=== PATIENT | female | born 1985 | race Two or more races ===

== ENCOUNTER 2016-07-08 09:26 | Emergency (ER) | payer MEDICAID, OTHER ==
[~2016-07-08 09:26] MED LIST: PRENCAP17 PO
--- NOTE | 2016-07-08 09:39 | PD ---
HPI Chief Complaint low back pain Date Seen: Jul 08, 2016 Time Seen: 09:45 Travel History International Travel<30 Days: No Contact w/Intl Traveler<30Days: No History of Present Illness HPI 31 year old at 37/6 weeks gestation with DILLON 07/23/16 by LMP 10/17/15, confirmed by ultrasound 06/16/16. Has history of , GBS negative. Reports to OB ED for lower back pain. The pain started one week ago and has been intermittent. It increased in intensity and has remained constant since early this morning. She's been having sporadic contractions for the past week that have not increased in intensity or frequency. She has no leakage of fluid or vaginal bleeding. She has good movements. No nausea, vomiting, abdominal pain, chest pain, shortness of breath. No dysuria or increased frequency of urination. She otherwise feels fine. She has not taken anything to relieve the pain and has not noticed any particular alleviating or aggravating factors. History Past Medical History Narrative Medical Pituitary adenoma treated with medication, resolved by patient report Obstetric History Obstetric History History of , full term Takes vitamins scheduled for 07/18/16 DILLON 07/23/16 by LMP 10/17/15, confirmed by ultrasound 06/16/16 GBS negative BP's normal Blood type: B Rh positive antibody screen negative Pap normal Rubella immune VDRL negative urine screen normal HBsAg negative HIV negative GC/chlamydia negative TSH 1.75 Varicella positive Past Surgical History Narrative Surgical X1 Breast augmentation Liposuction Family History Narrative Family History Maternal hypertension Social History Narrative Social History No smoking, drinking, or drug use Allergies-Medications (Allergen,Severity, Reaction): Coded Allergies: No Known Allergies (Unverified , 07/06/16) Home Meds Active Scripts Without A W/ Fe Carbo (Prenate Mini 29-0.6-0.4-350 mg)1 Cap [id number] Cap PO DAILY #90 BOTTLE Ref 1 Prov:Vinayak Carter MD 06/01/16 Review of Systems Except as stated in HPI: all other systems reviewed are Neg Physical Exam Narrative GENERAL: No acute distress SKIN: Warm and dry. HEAD: Normocephalic and atraumatic. EYES: No scleral icterus. No injection or drainage. ENT: No nasal drainage noted. Mucous membranes pink. Airway patent. NECK: Supple, trachea midline. No JVD. CARDIOVASCULAR: Regular rate and rhythm without murmurs, gallops, or rubs. RESPIRATORY: Breath sounds equal bilaterally. No accessory muscle use. ABDOMEN/GI: Abdomen soft, non-tender, bowel sounds present, no rebound, no guarding Gravid to [-] weeks size Fundal Height: [-] GENITOURINARY: External Genitalia: intact and normal in appearance Dilatation: 1 Effacement: 0 Station: -3 Presentation: [-] Membranes: [intact or ruptured] Uterine Contractions: sporadic contractions FHT's: Category: 1 Baseline: 140's Reactive: yes Variability: moderate Decels: none EXTREMITIES: No cyanosis or edema. BACK: Mild tenderness to palpation in lower back region extending to the right side. No swelling or deformity. No CVA tenderness. NEUROLOGICAL: Awake and alert. Data Data Vital Signs Reviewed: Yes MDM Medical Record Reviewed: Yes Interpretation(s) 31 year old at 37/6 weeks gestation with DILLON 07/23/16 by LMP 10/17/15, confirmed by ultrasound 06/16/16. Has history of , GBS negative. Reports to OB ED for lower back pain. DDx includes labor, muscle strain, pain from baby' s positioning. - Labor check - monitoring - Oral hydration - Monitor for contractions - Tylenol for pain - Demerol, phenergan IM one time Discussed with Dr. Casey Narrative Course / MDM 31 year old at 37/6 weeks gestation with DILLON 07/23/16 by LMP 10/17/15, confirmed by ultrasound 06/16/16. Has history of , GBS negative. Reports to OB ED for lower back pain. DDx includes labor, muscle strain, pain from baby' s positioning. - Tylenol PRN for pain. - Heating pad PRN - Foxing Closer on labor precautions, when to return to OB ED - scheduled for 07/18/16. Discussed with Dr. Casey Diagnosis Diagnosis: Primary Impression: Pain during labor Disposition: DISCHARGE HOME Condition: Good Percy Chapman MD R2 Jul 08, 2016 09:39
[2016-07-08] MEDS ORDERED: MEPERIDINE HCL 50 MG/ML VIAL IM ONE (10:15)
[2016-07-08] MEDS ORDERED: ACETAMINOPHEN 325 MG TAB PO ONE (10:15)
[2016-07-08] MEDS ORDERED: PROMETHAZINE INJ 25 MG/ML VIAL IM ONE (10:15)
--- NOTE | 2016-07-08 10:51 | PD ---
History of Present Illness Date Seen: Jul 08, 2016 History of Present Illness 37-38 wk PCS with low back pain, no bleeding or SROm , FHR reactive , irreg CTXs seen. cx closed thick high Will give po ApaP and IM demerol /phenergan 50/25 , needs home bedrest with heationg pad Return for worsening symptoms or signs otherwise return for scheduled C/S Michael Casey II, MD Jul 08, 2016 10:50
[2016-07-25] MEDS ORDERED: IBUP800T23 PO (16:05)
== END 2016-07-08 11:08 | disposition home or self-care (01) ==
LOC: HOBED 09:26
DX: O26.893 Other specified pregnancy related conditions, third trimester (principal); M54.5 Low back pain; Z3A.37 37 weeks gestation of pregnancy
CPT/HCPCS: 59025; 96372; 99283; J2175; J2550